=== PATIENT | male | born 1960 | race Caucasian/White ===

== ENCOUNTER 2020-05-16 13:34 | Emergency (ER) | payer BC, SELFPAY ==
--- NOTE | ~2020-05-16 | XR_ITS ---
EXAMINATION: XR finger 5th RT min 2V DATE: 05/16/2020 14:10 INDICATION: Trauma to the right fourth distal phalanx. TECHNIQUE: Dorsal palmar, lateral and 2 oblique views of the right fifth digit were obtained COMPARISON: None FINDINGS: Nondisplaced fracture at the radial aspect of the tuft of the right fifth distal phalanx. Alignment r emains essentially anatomic. There is surrounding soft tissue swelling. No other fractures identified . 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 IMPRESSION: 1. Nondisplaced tuft fracture at the right fifth distal phalanx. Reviewed, dictated and finalized at location B.
[2020-05-16 13:50] VITALS: BP 128/74; PULSE 73; RESP 20; TEMP 37.2; O2SAT 96
--- NOTE | 2020-05-16 14:17 | ED.UPPEXIN ---
HPI - Extremity Injury (Upper) General Chief Complaint: Wound/Laceration Stated Complaint: right hand pinky injury Time Seen by Provider: 05/16/20 14:10 Source: patient and RN notes reviewed History of Present Illness HPI narrative: Patient is a 59-year-old male who presents the urgent care with complaints of a laceration to the right pinky finger. Patient states that he was pulling very hard on a metal pipe and slammed the right pinky finger between his knee and the pipe. Patient states that occurred at approximately 830 this morning and he has just placed a Band-Aid over the finger. Patient denies of any numbness or tingling. No other acute complaints. No use of [id number] medication for pain. Patient aware of the plan of care. Some parts of this dictation were generated by voice recognition software and may contain typographical and/or grammatical inaccuracies. Related Data Home Medications Medication Instructions Recorded Confirmed alirocumab [Praluent Pen] mg SUBCUT 05/16/20 aspirin 05/16/20 celecoxib mg 05/16/20 omeprazole 05/16/20 tramadol mg 05/16/20 Allergies Allergy/AdvReac Type Severity Reaction Status Date / Time No Known Allergies Allergy Verified 05/16/20 13:57 Review of Systems Review of Systems: Narrative: CONSTITUTIONAL: Denies fever, chills, or sweats. EYES: Denies visual changes, redness, or discharge. ENT: Denies rhinorrhea, congestion, sore throat, or otalgia. CARDIOVASCULAR: Denies chest pain, palpitations, or edema. RESPIRATORY: Denies cough or dyspnea. GASTROINTESTINAL: Denies abdominal pain, nausea, vomiting, or diarrhea. GENITOURINARY: Denies dysuria or hematuria. SKIN: Reports of a laceration to the right pinky finger MUSCULOSKELETAL: Reports of bruising and swelling to the right pinky finger NEUROLOGIC: Denies headache, numbness, or weakness. All other systems reviewed are negative, except as documented in HPI. COUNTS INCLUDE 234 BEDS AT THE [facility] Family History Family History (Updated 09/09/15 @ 23:19 by DOCTOR UNKNOWN) Father Hypertension Grandparent Family history of malignant neoplasm Diabetes mellitus Sibling Family history of diabetes mellitus in first degree relative Social History Social History Alcohol intake: never Comments At the time of my signature, I reviewed and agree with the nursing past medical, surgical, social, and family history. There is no relevant family history pertinent to the patient complaint. Exam Narrative: Exam Narrative: GENERAL: This is a well-nourished, well-developed patient, in no apparent distress. HEAD: normocephalic, atraumatic. EYES: PERRL. Sclera clear/white. Vision is grossly intact. EARS: External ears normal NOSE: External nose normal with no obvious nasal discharge, nares without redness, no rhinorrhea. THROAT: Mucous membranes moist NECK: Neck supple SKIN: 2 cm irregular jagged laceration to the palmar aspect of the right pinky tuft; 0.5cm (2) open superficial lacerations to the tuft of the right pinky finger NEURO: awake, alert, and oriented to person, place and time. There were no obvious focal neurologic abnormalities. EXTREMITIES: Moderate ecchymosis and mild edema to the tuft of the right pinky finger due to crushing injury. Range of motion to affected digit within normal limits. Moderate tenderness to the tuft of the right pinky finger. Capillary refill less than 2 seconds. Positive strong right radial pulse laceration detailed in skin . Course Vital Signs Vital signs: Vital Signs Temperature 98.9 F 05/16/20 13:50 Pulse Rate 73 05/16/20 13:50 Respiratory Rate 20 05/16/20 13:50 Blood Pressure 128/74 05/16/20 13:50 Pulse Oximetry 96 05/16/20 13:50 Temperature 98.9 F 05/16/20 13:50 Pulse Rate 73 05/16/20 13:50 Respiratory Rate 20 05/16/20 13:50 Blood Pressure 128/74 05/16/20 13:50 Pulse Oximetry 96 05/16/20 13:50 Reviewed Procedures Laceration Laceration 1: Site: hand ([place]
[2020-05-16] MEDS: TETANUS,DIPHTHERIA,AC PERTUSSIS ADULT (0.5 ML) BOOSTRIX IM (14:51)
== END 2020-05-16 15:12 | disposition home or self-care (01) ==
PROVIDERS: Emergency Provider Nurse Practitioner Family
DX: S62.666B Nondisplaced fracture of distal phalanx of right little finger, initial encounter for open fracture (principal); X58.XXXA Exposure to other specified factors, initial encounter; Z23 Encounter for immunization
CPT/HCPCS: 29130; 73140; 90471; 90715; 99214; G0463

== ENCOUNTER 2022-01-18 07:00 | Outpatient (NON) | payer BC, SELFPAY | END 2022-01-18 07:01 | disposition home or self-care (01) | LOC: ANHLAB 01-19 12:46 | PROVIDERS: Visit Provider Nurse Practitioner | DX: D49.2 Neoplasm of unspecified behavior of bone, soft tissue, and skin (principal) | CPT/HCPCS: 88305 ==